=== PATIENT | female | born 1970 ===

== ENCOUNTER → 2019-04-19 09:02 | Outpatient (CLI) | payer OTHER, SELFPAY ==
--- NOTE | ~2019-04-19 | MR_ITS ---
EXAMINATION: MR hip RT wo con DATE: 04/19/2019 09:51 INDICATION: Labral tear with chronic right hip pain TECHNIQUE: Magnetic resonance imaging (MRI) of the right hip was performed without intravenous contr ast. Sequences included full-field axial PD-weighted FS FSE and T1-weighted FSE, coronal of the pelvi s with PD-weighted FS FSE, small field of view of the right hip with axial PD-weighted FS FSE, sagit trinity PD-weighted FS FSE and coronal PD weighted FS FSE. Additional radial T1-weighted FGR oriented ort hogonal to the acetabular rim were obtained for evaluation of the labrum. COMPARISON: None FINDINGS: Bones/labrum/cartilage: Alignment is normal. No fracture or avascular necrosis. There is extensive red marrow reexpansion th roughout the pelvis and in the visualized lumbar spine. Mild osteoarthritis at the right hip with sma ll region of high-grade chondromalacia at the anterosuperior aspect of the acetabulum where there is deep fissuring with mild underlying subarticular cystic change. Additional mild partial thickness car tilage loss with shallow chondral surface irregularity at the superolateral aspect of the right aceta bulum. There is a linear tear of the anterior to superolateral right acetabular labrum. There is decr eased femoral head neck offset with underlying degenerative cystic change at the anterosuperior right femoral head neck junction suggestive of cam-type femoral acetabular impingement. Fluid: Symmetric physiologic amount of fluid within both hip joints. Soft tissues: Normal and symmetric muscle bulk and signal in the pelvis and visualized proximal thighs. The iliopso as, gluteal and proximal hamstring tendons are normal. Enlarged fibroid uterus with multiple PD hypoi ntense uterine fibroids the largest measuring 6.0 cm in maximal diameter. Likely associated enlarged bilateral parametrial vessels. Low signal intensity likely tampon within the vaginal vault. Limited e valuation of visceral organs of the pelvis is otherwise unremarkable. No pathologically enlarged pel yecenia/inguinal lymphadenopathy. IMPRESSION: 1. Tear of the anterior to the superolateral right acetabular labrum with mild osteoarthritis. 2. Enlarged fibroid uterus. 3. Prominent diffuse red marrow reexpansion which could be seen with anemia. Reviewed, dictated and finalized at location A. WORKER
== END ==
DX: D25.9 Leiomyoma of uterus, unspecified (principal); S73.191A Other sprain of right hip, initial encounter; X58.XXXA Exposure to other specified factors, initial encounter; M16.11 Unilateral primary osteoarthritis, right hip
CPT/HCPCS: 73721